=== PATIENT | female | born 1950 ===

== ENCOUNTER 2017-11-11 08:44 | Emergency (ER) | payer SELFPAY ==
[2017-11-11 09:05] LABS: Actual Bicarbonate (HCO3a) 26.6 mEq/L (22-26); Analyzer IN Cardio ER; CO2 Tension 51.6 mmHg (35.0-45.0); Calcium, Ionized 1.1 mmol/L (1.12-1.30); Hematocrit-ABG 45.3 % (36.0-47.0); Hemoglobin (Hb) 11.9 g/dL (12.0-16.0); O2 Tension (PaO2) 56.2 mmHg (80.0-100.0); pH, Arterial 7.33 (7.35-7.45)
[2017-11-11 09:06] LABS: Puncture Site RRA
[2017-11-11 09:37] LABS: ALT (SGPT) 23 U/L (8-55); AST (SGOT) 54 U/L (5-34); Albumin 3.7 g/dL (3.4-4.8); Alkaline Phosphatase 195 U/L (40-150); Anion Gap 17 mmol/L (10-20); BUN (Urea Nitrogen) 94 mg/dL (9.8-20.1); Bilirubin, Total 1.2 mg/dL (0.2-1.2); Calc. Creatinine Clearance 27 mL/min (70-130); Calcium 9.1 mg/dL (7.8-10.44); Carbon Dioxide 24 mmol/L (23-31); Chloride 89 mmol/L (98-107); Estimated GFR-MDRD 12; Globulin 4.5 g/dL (2.4-3.5); Glucose 171 mg/dL (80-115); Magnesium 2.6 mg/dL (1.6-2.6); Potassium 5.3 mmol/L (3.5-5.1); Protein, Total 8.2 g/dL (6.0-8.3); Sodium 125 mmol/L (136-145)
[2017-11-11] MEDS ORDERED: Cefepime 2 GM, Syringe 2.5 ML in Sterile Water 10 ML SLOW IVP SCH ×2 (09:45→21:00)
[2017-11-11] MEDS ORDERED: Vancomycin HCl 1.75 GM in Sodium Chloride 0.9% 500 ML IVPB SCH (09:45)
[2017-11-11] MEDS ORDERED: Albuterol Sulfate 2.5 mg/0.5 ml Neb ONE (09:51)
[2017-11-11] MEDS ORDERED: Albuterol Sulfate 2.5 mg/3 ml Neb ONE (09:51)
--- NOTE | 2017-11-11 09:58 | RAD ---
PORTABLE CHEST 1 VIEW: DATE: 11/11/17. TIME: 9:07 a.m. HISTORY: Dyspnea, dizziness, chest pain, wheezing. FINDINGS/IMPRESSION: Comparison is made with the exam of previous day. Interval development of patchy consolidation is seen in the right lower lung. Pulmonary vascular con gestion is present. The heart size is stable. Left-sided pacing device remains in place. No pneumo thoraces or large effusions are identified. The possibility of pneumonia in the setting of congestiv e heart failure should be considered. POS: [facility]
[2017-11-11] MEDS ORDERED: Insulin Regular 300 UNITS/3 ML VIAL ONE (10:04)
[2017-11-11] MEDS ORDERED: Dextrose 50% Abboject 50 ML SYRINGE ONE (10:04)
[2017-11-11 11:28] LABS: Analyzer IN Cardio ER; Base Excess (BEa) 0.2 mEq/L (0 (+/-) 2.5); CO2 Tension 40.8 mmHg (35.0-45.0); Hematocrit-ABG 40.9 % (36.0-47.0); Hemoglobin (Hb) 10.9 g/dL (12.0-16.0); Puncture Site RRA; pH, Arterial 7.41 (7.35-7.45)
[2017-11-11 11:45] LABS: INR-International Normal Ratio 1.8; Prothrombin Time 21.3 SEC (12.0-14.7)
[2017-11-11] MEDS ORDERED: Furosemide 40 MG/4 ML VIAL ONE (11:58)
[2017-11-11] MEDS ORDERED: Acetaminophen 325 MG TAB PO PRN (12:05)
[2017-11-11] MEDS ORDERED: Ondansetron HCl/PF 4 MG/2 ML Vial IVP PRN (12:05)
[2017-11-11 12:10] LABS: Bilirubin Negative (Negative); Blood, Urine Negative (Negative); Clarity CLOUDY (Clear); Glucose, Urine (Dipstick) Negative (Negative); Leukocyte Negative (Negative); Nitrite Negative (Negative); Protein, Urine (Dipstick) Negative (Neg-Trace); Specific Gravity, Urine 1.015 (1.002-1.036); Urobilinogen 0.2 mg/dL (0.2-1.0)
[2017-11-11 12:13] LABS: Troponin I 0.137 ng/mL (< 0.028)
[2017-11-11] MEDS ORDERED: Dextrose 5% in Water 1,000 ML IV PRN (12:35)
[2017-11-11] MEDS ORDERED: HumaLOG 300 UNITS/3 ML VIAL SC PRN (12:35)
[2017-11-11] MEDS ORDERED: Dextrose 50% Abboject 50 ML SYRINGE SLOW IVP PRN (12:35)
--- NOTE | 2017-11-11 13:01 | HP ---
PRIMARY CARE PROVIDER: Angel Tian. Patient is a transfer from the [facility] with acute shortness of breath and pneumonia. Referred to the [facility] by [place] [facility]. HISTORY OF PRESENT ILLNESS: The patient was found to have respiratory distress this morning, could n ot be weaned off of her CPAP. She was transferred to [place]. She had been transferred from [facility] to [facility] after being treated for an acute cardiac arrest wi th CPR, cardioversion, ICD placement. She had a history of rib fractures from that. Other history i s difficult to obtain. PAST MEDICAL HISTORY: Chronic atrial fibrillation, coronary artery disease, diabetes mellitus type 2 , heart failure, obstructive sleep apnea, chronic kidney disease stage 4, history of MRSA, and pulmon fabi hypertension. PAST SURGICAL HISTORY: Includes knee surgery and history of L1-L2 vertebral fractures. CURRENT MEDICATIONS: Amiodarone 200 mg a day, aspirin 81 mg a day, Lipitor 40 mg a day, digoxin 125 mcg a day, enoxaparin, Pepcid 20 mg twice a day, Paxil 10 mg a day, gabapentin 600 mg 4 times a day, insulin 70/30 40 units subcutaneously b.i.d., lispro per sliding scale, levothyroxine 88 mcg a day, l osartan 100 mg a day, oxycodone 10 mg ER q.12 hours p.r.n., MiraLax, torsemide 40 mg in the morning a nd 20 at noon, Coumadin 2.5 mg Thursday and Thursday, 5 mg the other days of week and some p.r.n. medi cations. ALLERGIES: No allergies listed. SOCIAL HISTORY: No tobacco, alcohol, or illicit drug use. CODE STATUS: Discussed with her daughter. She is FULL CODE except no chest compressions. FAMILY HISTORY: Unable to obtain at the moment due to patient's respiratory difficulties and BiPAP. REVIEW OF SYSTEMS: Unable to obtain due to patient's respiratory difficulties and BiPAP. PHYSICAL EXAMINATION: GENERAL: The patient has BiPAP on. She is responsive. States she does not feel good. VITAL SIGNS: Blood pressure 164/65, respirations 24-36 variable, pulse 60-70, temperature 97.9, O2 s at 90% on BiPAP on O2. The patient is an obese woman. HEAD, EYES, EARS, NOSE, AND THROAT: Pupils equal, round, and reactive to light. Extraocular movemen ts are intact. Sclerae white. Tympanic membranes clear. Nose clear. Mucous membranes are wet. NECK: Short, thick. No jugular venous distension, adenopathy, or thyromegaly noted. CHEST: Rales in all hall. HEART: Regular rate and rhythm. First and second heart sounds muffled by breath sounds. No appreci able murmurs noted. ABDOMEN: Protuberant, soft. No hepatosplenomegaly noted. Bowel sounds present. EXTREMITIES: 3+ edema with no cyanosis or clubbing. PULSES: Carotid, radial, and femoral pulses palpable. Pedal pulses not palpable through the edema. She has edema in her arms. SKIN: Reveals ecchymoses across the chest. There is a healing suture line from the defibrillator in her left upper chest. HEME/LYMPH: No tender or swollen lymph nodes in axilla, inguinal or cervical area noted. NEUROLOGIC: Cranial nerves II-XII are intact. Moves all extremities. IMAGING DATA AND LABORATORY DATA: Chest x-ray reveals cardiomegaly, bilateral infiltrates consistent with congestive heart failure; however, the density in the right lower lung field is also consistent with pneumonia. There is a pacemaker defibrillator in the left upper chest, reviewed by me. Nickie leigh have no EKG, one will be obtained. Chemistry: Sodium 125, potassium 5.3, BUN 94, creatinine 3.6 7, blood sugar 171, AST 54. No BNP available. Blood gas; first blood, gas pH 7.33; second 7.41; fir st CO2 51.6, second 40.8, O2 56.2 on the first and 184 on second one. Yesterday, she had blood test. White cell count was 17.6, hemoglobin 11.4, and platelet count 185,000. ASSESSMENT: 1. Acute combined respiratory failure, hypercapnia, hypoxemia, improved on bilevel positive airway p ressure. 2. Acute congestive heart failure. 3. Right lower lobe pneumonia. 4. Pulmonary hypertension. 5. Atrial fibrillation with controlled ventricular response. 6. Hyponatremia. 7. Hyperkalemia. 8. Diabetes mellitus, insulin-dependent with chronic kidney disease stage 4. 9. Obstructive sleep apnea. 10. Hypertension. 11. History of anticoagulation. 12. Post-CPR and ICD placement. PLAN: Admit to critical care unit. Paper Control Clerk consult. Continue BiPAP 10/5 and O2 supplement to k eep oxygen saturation 92%, echocardiogram, IV Lasix 40 q.12 hours, measure I and O. Blood cultures h ave drawn. Patient will be treated with vancomycin. She has received 1 dose of cefepime. We will h ave follow pharmacology dose of vancomycin. Accu-Cheks and sliding scale insulin will be administere d. The patient's prognosis is guarded due to the severity of her multiple medical problems. She caleb l require frequent reevaluation. She will require intensive care, frequent followup, Pulmonology int ensivist consultation, frequent readjustment of medicines, etc.
[2017-11-11] MEDS ORDERED: Furosemide 40 MG/4 ML VIAL SLOW IVP SCH (14:00)
--- NOTE | 2017-11-11 14:16 | CON ---
DATE OF CONSULTATION: 11/11/2017 CONSULTING PHYSICIAN: Gregorio Gonzalez M.D. REASON FOR CONSULTATION: Acute respiratory failure. HISTORY OF PRESENT ILLNESS: The patient is a 66-year-old female, who presented to this hospital to[facility]jeet y in transfer from the [facility]. She developed acute shortness of breath th is morning. She typically wears CPAP at night, but could not tolerate removal of the apparatus this morning without becoming more short of breath. She was just in the [facility] with apparent bradycardiac cardiac arrests requiring a pacemaker. All of her care has been through that facility in the last several years. Currently, she says she feels better than she did earlier today, but she is still wearing a BiPAP. Glenn ferrara information is obtained by talking to the patient, talking to the family, and from reviewing the sc dical records. PAST MEDICAL HISTORY: 1. Chronic atrial fibrillation. 2. Recent episode of bradycardia requiring pacemaker. 3. Coronary artery disease. 4. Diabetes mellitus type 2. 5. Congestive heart failure. 6. KOBI. 7. 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 8. Chronic kidney disease stage 4, not requiring hemodialysis at this point. 9. History of methicillin-resistant Staphylococcus aureus infection of the knee, requiring left knee fusion. PAST SURGICAL HISTORY: 1. Pacemaker placement. 2. Left knee fusion. 3. L1-L2 vertebral fracture. MEDICATIONS PRIOR TO ADMISSION: 1. Amiodarone 200 mg a day. 2. Aspirin 81 mg daily. 3. Lipitor 40 mg daily. 4. Digoxin 125 mcg daily. 5. Enoxaparin 30 mg daily subcu. 6. Pepcid 20 mg twice daily. 7. Paxil 10 mg daily. 8. Gabapentin 600 mg 4 times daily. 9. 70/30 insulin 40 units twice daily. 10. Lispro sliding scale insulin. 11. Levothyroxine 88 mcg daily. 12 Losartan 100 mg daily. 13. Oxycodone 10 mg extended release every 12 hours as needed for pain. 14. MiraLax as needed. 15. Torsemide 40 mg in the morning and 20 mg at noon. 16. Coumadin 2.5 mg every Thursday, Thursday, and 5 mg the other days of the week. ALLERGIES: None. SOCIAL HISTORY: She is a nonsmoker, does not consume alcohol, does not use illicit drugs. FAMILY MEDICAL HISTORY: Unremarkable for cardiopulmonary disease. REVIEW OF SYSTEMS: Remarkable for shortness of breath, failure to thrive. Otherwise, 12 point revie w of systems is negative. PHYSICAL EXAMINATION: VITAL SIGNS: Blood pressure was 130/80, pulse 65, respirations 18, O2 sat was 99% on 30% oxygen via BiPAP 12/6. GENERAL: She is in no acute distress on BiPAP. HEENT: Pupils react. Sclerae are anicteric. Oropharynx clear. NECK: No JVD, no bruits. CARDIAC: S1 and S2. Regular and paced without murmur. LUNGS: Coarse breath sounds bilaterally. ABDOMEN: Soft, obese, nontender, bruising over the right flank from previous Lovenox injections. EXTREMITIES: 2+ edema of her lower extremities. She has a large scar over her left knee. NEUROLOGIC: Moves all 4 extremities without much difficulty. Fully intact sensation throughout. SKIN: Showed no obvious abnormalities other than bruising over her right flank. LABORATORY DATA: INR was 1.8, PT 21.3. PH 7.41, pCO2 of 40, pO2 of 84 on BiPAP 12/6 with 35% FIO2. Sodium 125, potassium 5.3, chloride 89, CO2 of 24, BUN 94, creatinine 3.6, glucose 171. BNP level w as 2602. Her chest x-ray was reviewed personally by myself including both the film and the radiologist's repor t. The patient has patchy consolidation in both chests which seems consistent with congestive heart failure. ASSESSMENT: 1. Acute respiratory failure secondary to diastolic congestive heart failure. 2. Pulmonary hypertension. 3. Obstructive sleep apnea. 4. Chronic atrial fibrillation. 5. Status post pacemaker placement, diabetes mellitus. 6. Morbid obesity. RECOMMENDATIONS: 1. Continue BiPAP. 2. Diurese the patient. 3. I have requested transfer back to [facility] if she is medically stable to transfer the EMS on CPAP to their ICU. 4. Diurese as tolerated. 70 minutes was spent with this consultation. Greater than 50% of the time was spent with patient on the patient's unit.
[2017-11-11] MEDS ORDERED: Heparin 5,000 UNITS/ML VIAL SC SCH (15:00)
[2017-11-11] MEDS ORDERED: Famotidine/PF 20 mg/2ml Vial SLOW IVP SCH (21:00)
[2017-11-11] MEDS ORDERED: Cefepime 2 GM in Sodium Chloride 0.9% 100 ML IVPB SCH (21:00)
[2017-11-12] MEDS ORDERED: Famotidine/PF 20 mg/2ml Vial SLOW IVP SCH (09:00)
[2017-11-12] MEDS ORDERED: Aspirin 325 MG TAB PO SCH (09:00)
== END 2017-11-11 15:18 | disposition short-term general hospital (02) ==
LOC: ERS 08:44
DX: J18.9 Pneumonia, unspecified organism (principal); I50.9 Heart failure, unspecified; E87.5 Hyperkalemia; E87.1 Hypo-osmolality and hyponatremia; R06.03 Acute respiratory distress; G47.30 Sleep apnea, unspecified; I25.10 Atherosclerotic heart disease of native coronary artery without angina pectoris; I48.91 Unspecified atrial fibrillation; E11.9 Type 2 diabetes mellitus without complications; I10 Essential (primary) hypertension; N18.6 End stage renal disease; F32.9 Major depressive disorder, single episode, unspecified; Z79.899 Other long term (current) drug therapy; Z79.82 Long term (current) use of aspirin
CPT/HCPCS: 36415; 51702; 71045; 81003; 82553; 82805; 83605; 83735; 83880; 84443; 84484; 86850; 86900; 86901; 87040; 87086; 93005; 94640; 94660; 96365; 96366; 96375; A4216; J0692; J1815; J1940; J3370; J7050; J7611